=== PATIENT | female | born 1990 | race American Indian/Alaskan Native ===

== ENCOUNTER 2020-11-18 18:13 | Emergency (ER) | payer BC, MEDICAID ==
--- NOTE | 2020-11-18 18:22 | Event Note ---
ED Screening Note Date of service: 11/18/20 Time: 18:20 ED Screening Note: This is a 30-year-old female presents the emergency department the chief complaint of an ingestion of approximately 7Advil PMs approximately 2 hours ago. She states she has been having dental pain and she has not been sleeping well and she wanted to go to sleep. She reports she has had problems sleeping, has not had much of an appetite lately and has had a lot of stress lately. She reports her mother has been in the hospital very sick and not getting any better.. Her mother called poison control and they referred her to the emergency department due to this ingestion. This initial assessment/diagnostic orders/clinical plan/treatment(s) is/are subject to change based on patients health status, clinical progression and re- assessment by fellow clinical providers in the ED. Further treatment and workup at subsequent clinical providers discretion. Patient/guardian urged not to elope from the ED as their condition may be serious if not clinically assessed and managed. Initial orders include: Psychiatric/ingestion protocol
[2020-11-18 18:23] VITALS: BP 116/72
[2020-11-18 19:14] LABS: Amphetamine Screen,Urine Negative; Benzodiazepines Screen,Urine Negative; Cocaine Screen,Urine Negative; Methadone Screen,Urine Negative; Opiate Screen,Urine Negative
[2020-11-18 19:34] LABS: Cannabinoid Screen,Urine Positive
[2020-11-18 19:38] LABS: Bacteria,Urine 1+ /HPF (Negative); Bilirubin,Urine NEG (Negative); Blood,Urine NEG (Negative); Color,Urine Yellow (Yellow); Mucus,Urine FEW /HPF; Urobilinogen,Urine < 2.0 mg/dL (<2.0)
[2020-11-18 19:41] LABS: HCG Qualitative,Urine Negative (Negative)
[2020-11-18 20:12] LABS: Basophils % (Auto) 0.7 % (0.0-1.8); Eosinophils # (Auto) 0.1 K/mm3 (0.0-0.4); Eosinophils % (Auto) 2.6 % (0.0-4.3); Hematocrit 45.8 % (30.3-42.9); Hemoglobin 15.2 gm/dl (10.1-14.3); Lymphocytes # (Auto) 2.3 K/mm3 (1.2-5.4); Lymphocytes % (Auto) 46.2 % (13.4-35.0); Mean Corpuscular HGB Conc 33 % (30-34); Mean Corpuscular Volume 100 fl (79-97); Monocytes # (Auto) 0.2 K/mm3 (0.0-0.8); Monocytes % (Auto) 4.2 % (0.0-7.3); Platelet Count 222 K/mm3 (140-440); Red Blood Count 4.58 M/mm3 (3.65-5.03); Red Cell Distribution Width 12.8 % (13.2-15.2)
[2020-11-18 20:36] LABS: BUN/Creatinine Ratio 7; Blood Urea Nitrogen 5 mg/dL (7-17); Calcium 9.4 mg/dL (8.4-10.2); Hemolysis Index 11
--- NOTE | 2020-11-18 22:28 | Event Note ---
Date: 11/18/20 The patient was evaluated in the emergency department for symptoms described in the history of present illness. He/she was evaluated in the context of the global COVID-19 pandemic, which necessitated consideration that the patient might be at risk for infection with the virus that causes COVID-19. Institutional protocols and algorithms that pertain to the evaluation of patients at risk for COVID-19 are in a state of rapid change based on information released by regulatory bodies including the CDC and federal and state organizations. These policies and algorithms were followed during the patient's care in the emergency department. Please note that these policies, procedures and recommendations changed on a rapid basis. This patient left the emergency room before I was able to personally evaluate her. Her laboratory studies and psychiatry recommendation are reviewed and appreciated. I called the patient on her listed phone number, and advised to return to the emergency room as soon as possible. I have also instructed nursing staff to contact local law enforcement to bring the patient back, if she does not show up
== END 2020-11-18 22:15 | disposition left against medical advice (07) ==
LOC: ED 18:13
DX: K08.89 Other specified disorders of teeth and supporting structures (principal); Z53.21 Procedure and treatment not carried out due to patient leaving prior to being seen by health care provider
CPT/HCPCS: 36415; 80048; 80307; 80320; 81001; 81025; 85025; G0480